=== PATIENT | female | born 1965 | race African-American/Black ===

== ENCOUNTER 2018-09-21 07:44 | Emergency (ER) | payer SELFPAY ==
[~2018-09-21] VITALS: Ht 175.3 cm; Wt 113.4 kg
[2018-09-21 07:49] VITALS: BP 135/76
[2018-09-21] MEDS ORDERED: TETRACAINE HCL/PF 0.5% UD 2 ML BOTTLE ONE (08:15)
[2018-09-21] MEDS ORDERED: TETRACAINE HCL/PF 0.5% UD 2 ML BOTTLE EACHEYE ONE (08:30)
--- NOTE | 2018-09-21 08:58 | NUR ---
For Discharge- Patient discharged to home in stable condition. Written and verbal after care instructions given. Patient verbalizes understanding of instruction. Ambulatory Stable
== END 2018-09-21 09:00 | disposition home or self-care (01) ==
LOC: ER 07:55
DX: H10.213 Acute toxic conjunctivitis, bilateral (principal)
CPT/HCPCS: 99283; J7030

== ENCOUNTER 2018-10-12 09:58 | Emergency (ER) | payer MEDICARE ==
[~2018-10-12] VITALS: Ht 175.3 cm; Wt 108.9 kg
--- NOTE | 2018-10-12 10:05 | NUR ---
RN NOTES , RECEIVED PT IN ROOM ER #3 C/O PAIN IN BOTH EYES , VSS STABLE , PT A/OX4, ER MD NOTIFED,CONTINUE TO MONITOR .
[2018-10-12 10:06] VITALS: BP 118/82
[2018-10-12] MEDS ORDERED: predniSONE 20 MG TABLET ONE (10:51)
[2018-10-12] MEDS ORDERED: diphenhydrAMINE HCL 50 MG CAPSULE ONE (10:51)
--- NOTE | 2018-10-12 10:57 | NUR ---
Patient discharged to home in stable condition. Written and verbal after care instructions given. Patient verbalizes understanding of instruction.
[2018-10-12] MEDS ORDERED: diphenhydrAMINE HCL 25 MG CAPSULE PO ONE (11:00)
[2018-10-12] MEDS ORDERED: predniSONE 20 MG TABLET PO ONE (11:00)
== END 2018-10-12 10:57 | disposition home or self-care (01) ==
LOC: ER 09:59
DX: T78.40XA Allergy, unspecified, initial encounter (principal); H57.13 Ocular pain, bilateral; X58.XXXA Exposure to other specified factors, initial encounter
CPT/HCPCS: 99283; J7512; Q0163